=== PATIENT | male | born 1990 | race Caucasian/White ===

== ENCOUNTER 2018-04-03 23:28 | Emergency (ER) | payer SELFPAY ==
[~2018-04-03] VITALS: Ht 190.5 cm; Wt 90.7 kg
[2018-04-03 23:28] VITALS: BP 143/93
[2018-04-04 00:15] LABS: BILIRUBIN,URINE SMALL (NEG); CLARITY,URINE CLEAR; COLOR,URINE AMBER; NITRITE,URINE NEGATIVE (NEG); PH,URINE 5.5; PROTEIN,URINE NEGATIVE (NEG-TRACE)
[2018-04-04] MEDS ORDERED: IV NORMAL SALINE 1000ML BAG 1,000 ML IV ONE (00:15)
[2018-04-04] MEDS ORDERED: LORazepam 1 MG TABLET PO ONE (00:15)
[2018-04-04 00:25] LABS: BARBITURATES NEG (NEG); BENZODIAZEPINES NEG (NEG); CANNABINOIDS POS (NEG); COCAINE NEG (NEG); METHADONE NEG (NEG); OPIATES NEG (NEG); PHENCYCLIDINE NEG (NEG)
[2018-04-04 00:28] LABS: AMPHETAMINE/METHAMPHETAMINE POS (NEG)
[2018-04-04 00:38] LABS: BACTERIA,URINE FEW /HPF (0-FEW); SQUAMOUS EPITHELIAL CELL,UR FEW /LPF
--- NOTE | 2018-04-04 01:45 | PHYS DOC ---
Past Medical History Past Medical History: Schizophrenia Past Surgical History: No Surgical History Alcohol Use: None Drug Use: None Adult General Chief Complaint Chief Complaint: PSYCH EVALUATION HPI HPI Patient is a 28 year old [f__sex] who presents with [] Review of Systems Review of Systems Constitutional: Denies fever or chills [] Eyes: Denies change in visual acuity, redness, or eye pain [] HENT: Denies nasal congestion or sore throat [] Respiratory: Denies cough or shortness of breath [] Cardiovascular: No additional information not addressed in HPI [] GI: Denies abdominal pain, nausea, vomiting, bloody stools or diarrhea [] : Denies dysuria or hematuria [] Musculoskeletal: Denies back pain or joint pain [] Integument: Denies rash or skin lesions [] Neurologic: Denies headache, focal weakness or sensory changes [] Endocrine: Denies polyuria or polydipsia [] All other systems were reviewed and found to be within normal limits, except as documented in this note. Current Medications Current Medications Current Medications Medications (Trade) Dose Ordered Sig/Emerald Start Time Stop Time Status Last Admin Dose Admin Lorazepam (Ativan) 0.5 mg 1X ONCE 04/04/18 00:15 04/04/18 00:16 DC 04/04/18 00:56 0.5 MG Sodium Chloride 1,000 ml @ 1,000 mls/hr 1X ONCE 04/04/18 00:15 04/04/18 01:14 DC Allergies Allergies Allergies Coded Allergies Type Severity Reaction Last Updated Verified No Known Drug Allergies 04/03/18 No Physical Exam Physical Exam Constitutional: Well developed, well nourished, no acute distress, non-toxic appearance. [] HENT: Normocephalic, atraumatic, bilateral external ears normal, oropharynx moist, no oral exudates, nose normal. [] Eyes: PERRLA, EOMI, conjunctiva normal, no discharge. [] Neck: Normal range of motion, no tenderness, supple, no stridor. [] Cardiovascular:Heart rate regular rhythm, no murmur [] Lungs & Thorax: Bilateral breath sounds clear to auscultation [] Abdomen: Bowel sounds normal, soft, no tenderness, no masses, no pulsatile masses. [] Skin: Warm, dry, no erythema, no rash. [] Back: No tenderness, no CVA tenderness. [] Extremities: No tenderness, no cyanosis, no clubbing, ROM intact, no edema. [] Neurologic: Alert and oriented X 3, normal motor function, normal sensory function, no focal deficits noted. [] Psychologic: Affect normal, judgement normal, mood normal. [] Current Patient Data Vital Signs Vital Signs Date Time Temp Pulse Resp B/P (MAP) Pulse Ox O2 Delivery O2 Flow Rate FiO2 04/03/18 23:28 98.9 93 16 143/93 (110) 99 Room Air 98.9 Lab Values Laboratory Tests Test 04/04/18 00:04 Urine Collection Type Unknown Urine Color Estefany Urine Clarity Clear Urine pH 5.5 Urine Specific [place] >=1.030 Urine Protein Negative mg/dL (NEG-TRACE) Urine Glucose (UA) Negative mg/dL (NEG) Urine Ketones (Stick) 15 mg/dL (NEG) Urine Blood Negative (NEG) Urine Nitrite Negative (NEG) Urine Bilirubin Small (NEG) Urine Urobilinogen Dipstick 1.0 mg/dL (0.2 mg/dL) Urine Leukocyte Esterase Negative (NEG) Urine RBC 3-5 /HPF (0-2) Urine WBC 1-4 /HPF (0-4) Urine Squamous Epithelial Cells Few /LPF Urine Bacteria Few /HPF (0-FEW) Urine Mucus Marked /LPF Urine Opiates Screen Neg (NEG) Urine Methadone Screen Neg (NEG) Urine Barbiturates Neg (NEG) Urine Phencyclidine Screen Neg (NEG) Urine Amphetamine/Methamphetamine Pos (NEG) Urine Benzodiazepines Screen Neg (NEG) Urine Cocaine Screen Neg (NEG) Urine Cannabinoids Screen Pos (NEG) Urine Ethyl Alcohol Neg (NEG) EKG EKG [] Radiology/Procedures Radiology/Procedures [] Course & Med Decision Making Course & Med Decision Making Pertinent Labs and Imaging studies reviewed. (See chart for details) [] Dragon Disclaimer Dragon Disclaimer This electronic medical record was generated, in whole or in part, using a voice recognition dictation system. Departure Departure Impression: Primary Impression: Paranoid schizophrenia Additional Impressions: Methamphetamine abuse Marijuana abuse Anxiety Disposition: 01 HOME, SELF-CARE Condition: STABLE Referrals: NO PCP (PCP) Patient Instructions: Anxiety and Panic Attacks, Methamphetamine Abuse, Complications, Schizophrenia Additional Instructions: Stop using methamphetamine and marijuana as they can both increased paranoia. Follow up with the services that you were given by Ct, with the psychiatric assessment team. If worsening return to the emergency department. Problem Qualifiers KITA HODGES APRN Apr 04, 2018 01:45
== END 2018-04-04 01:49 | disposition home or self-care (01) ==
LOC: ER 04-04 00:13
DX: F20.0 Paranoid schizophrenia (principal); F41.9 Anxiety disorder, unspecified; F15.90 Other stimulant use, unspecified, uncomplicated; F12.90 Cannabis use, unspecified, uncomplicated
CPT/HCPCS: 36415; 80307; 81001; 87491; 87591; 99284

== ENCOUNTER 2018-04-08 02:58 | Emergency (ER) | payer SELFPAY ==
[~2018-04-08] VITALS: Ht 195.6 cm; Wt 90.7 kg
[2018-04-08 03:00] VITALS: BP 155/83
--- NOTE | 2018-04-08 03:30 | PHYS DOC ---
Past Medical History Past Medical History: Schizophrenia Past Surgical History: No Surgical History Alcohol Use: None Drug Use: None Adult General Chief Complaint Chief Complaint: PSYCH EVALUATION HPI HPI Patient is a 28 year old male presents with chief complaint of wants an HPV test. This patient has a history of paranoid schizophrenia he says he is not suicidal he says he has a place to go he says his girlfriend told her this and wants to be checked out. Allergies Allergies Allergies Coded Allergies Type Severity Reaction Last Updated Verified No Known Drug Allergies 04/03/18 No Physical Exam Physical Exam Constitutional: Well developed, well nourished, no acute distress, non-toxic appearance. [] HENT: Normocephalic, atraumatic, bilateral external ears normal, oropharynx moist, no oral exudates, nose normal. [] Eyes: PERRLA, EOMI, conjunctiva normal, no discharge. [] Neck: Normal range of motion, no tenderness, supple, no stridor. [] Pulmonary: Normal respiratory effort no increased work of breathing no obvious chest wall trauma Abdomen: Bowel sounds normal, soft, no tenderness, no masses, no pulsatile masses. [] Skin: Warm, dry, no erythema, no rash. [] Back: No tenderness, no CVA tenderness. [] Extremities: No tenderness, no cyanosis, no clubbing, ROM intact, no edema. [] Neurologic: Alert and oriented X 3, normal motor function, normal sensory function, no focal deficits noted. [] Psychologic: odd affect EKG EKG [] Radiology/Procedures Radiology/Procedures [] Course & Med Decision Making Course & Med Decision Making Pertinent Labs and Imaging studies reviewed. (See chart for details) 28 yo m with schizophrenia requesting hpv test advised this is not necessary, should always use protection, reviewed negative chlam/gc noted the other day. pt states not suicidal is trying to stay sober, says he does have a place to go. reassured. Melina Disclaimer Melina Disclaimer This electronic medical record was generated, in whole or in part, using a voice recognition dictation system. Departure Departure Impression: Primary Impression: Schizophrenia Disposition: HOME, SELF-CARE Condition: STABLE Patient Instructions: Schizophrenia MARK KNOWLES MD Apr 08, 2018 03:30
== END 2018-04-08 03:25 | disposition home or self-care (01) ==
LOC: EEVIPCON 02:58 → ER 02:58
DX: F20.0 Paranoid schizophrenia (principal)
CPT/HCPCS: 99281; 99284

== ENCOUNTER 2018-07-03 08:44 | Emergency (ER) | payer SELFPAY ==
[~2018-07-03] VITALS: Ht 193 cm; Wt 95.3 kg
[2018-07-03 09:02] VITALS: BP 161/99
[2018-07-03] MEDS ORDERED: diazePAM 5 MG TABLET PO ONE (09:30)
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
== END 2018-07-03 09:49 | disposition home or self-care (01) ==
LOC: ER 08:44
DX: F41.9 Anxiety disorder, unspecified (principal); F20.9 Schizophrenia, unspecified; F32.9 Major depressive disorder, single episode, unspecified; G89.29 Other chronic pain
CPT/HCPCS: 99284

== ENCOUNTER 2018-07-03 14:15 | Emergency (ER) | payer SELFPAY ==
[~2018-07-03] VITALS: Ht 172.7 cm; Wt 95.3 kg
[2018-07-03 15:08] LABS: BILIRUBIN,URINE SMALL (NEG); CLARITY,URINE CLEAR; COLOR,URINE AMBER; NITRITE,URINE NEGATIVE (NEG); PROTEIN,URINE NEGATIVE (NEG-TRACE)
[2018-07-03 15:14] LABS: BARBITURATES NEG (NEG); BENZODIAZEPINES POS (NEG); CANNABINOIDS NEG (NEG); COCAINE NEG (NEG); METHADONE NEG (NEG); OPIATES NEG (NEG); PHENCYCLIDINE NEG (NEG)
[2018-07-03 15:16] LABS: AMPHETAMINE/METHAMPHETAMINE POS (NEG)
[2018-07-03 15:17] LABS: BACTERIA,URINE 0 /HPF (0-FEW); RBC,URINE 0 /HPF (0-2); WBC,URINE OCC /HPF (0-4)
[2018-07-03 15:18] LABS: SQUAMOUS EPITHELIAL CELL,UR OCC /LPF
[2018-07-03 17:00] VITALS: BP 150/99
--- NOTE | 2018-07-03 17:01 | PHYS DOC ---
Past Medical History Past Medical History: Anxiety, Depression, Schizophrenia Past Surgical History: No Surgical History Alcohol Use: None Drug Use: Marijuana, Methamphetamine Adult General Chief Complaint Chief Complaint: SEXUALLY TRANSMITTED DISEASE [facility] HPI Patient is a 28 year old male with history of schizophrenia, depression, anxiety, who presents to the ED for the second time today to be evaluated. This time patient is requesting HPV and HIV testing. He has a piece of paper stating he would like this test done because he thinks he was exposed. Patient goes into this long stories of maybe he has hep C, he is moving from one idea to the other. Patient was moved to an acute bed, PAT team was consulted. Osmel from the PAT team came and talked to patient, he states patient refused all the help the head lined up for him including going to [employer] or [facility] so that they can get him back on his medicines. Urine noted for methamphetamine use and benzodiazepines, patient was in the ED earlier and received Valium. Patient was discharged, asked him where he was staying, he states he is going home. Inquired where home is. Patient will not state. Offered him a homeless skilled nursing. He refused stating he does not want to go to homeless skilled nursing. He went to the waiting room. He again requested a provided to go back and talk to him. I talked to patient. Addressed his questions which are the same questions regarding his labs which we already had discussed. Reassured him. He stated he is going home. Review of Systems Review of Systems Constitutional: Denies fever or chills [] Eyes: Denies change in visual acuity, redness, or eye pain [] HENT: Denies nasal congestion or sore throat [] Respiratory: Denies cough or shortness of breath [] Cardiovascular: No additional information not addressed in HPI [] GI: Denies abdominal pain, nausea, vomiting, bloody stools or diarrhea [] : Concerns for STDs. Denies dysuria or hematuria [] Musculoskeletal: Denies back pain or joint pain [] Integument: Denies rash or skin lesions [] Neurologic: Denies headache, focal weakness or sensory changes [] Pysch: Psych evaluation All other systems were reviewed and found to be within normal limits, except as documented in this note. Allergies Allergies Allergies Coded Allergies Type Severity Reaction Last Updated Verified No Known Drug Allergies 04/03/18 No Physical Exam Physical Exam Constitutional: Well developed, well nourished, no acute distress, non-toxic appearance. [] HENT: Normocephalic, atraumatic, bilateral external ears normal, oropharynx moist, no oral exudates, nose normal. [] Eyes: PERRLA, EOMI, conjunctiva normal, no discharge. [] Neck: Normal range of motion, no tenderness, supple, no stridor. [] Cardiovascular:Heart rate regular rhythm, no murmur [] Lungs & Thorax: Bilateral breath sounds clear to auscultation [] Abdomen: Bowel sounds normal, soft, no tenderness, no masses, no pulsatile masses. [] Skin: Warm, dry, no erythema, no rash. [] Back: No tenderness, no CVA tenderness. [] Extremities: No tenderness, no cyanosis, no clubbing, ROM intact, no edema. [] Neurologic: Alert and oriented X 3, normal motor function, normal sensory function, no focal deficits noted. [] Psychologic: Flat affect, withdrawn Current Patient Data Vital Signs Vital Signs Date Time Temp Pulse Resp B/P (MAP) Pulse Ox O2 Delivery O2 Flow Rate FiO2 07/03/18 14:30 97.7 86 18 146/93 (110) 97 Room Air 97.7 Lab Values Laboratory Tests Test 07/03/18 14:50 Urine Color Estefany Urine Clarity Clear Urine pH 6.0 Urine Specific [place] >=1.030 Urine Protein Negative mg/dL (NEG-TRACE) Urine Glucose (UA) Negative mg/dL (NEG) Urine Ketones (Stick) Trace mg/dL (NEG) Urine Blood Negative (NEG) Urine Nitrite Negative (NEG) Urine Bilirubin Small (NEG) Urine Urobilinogen Dipstick 1.0 mg/dL (0.2 mg/dL) Urine Leukocyte Esterase Negative (NEG) Urine RBC 0 /HPF (0-2) Urine WBC Occ /HPF (0-4) Urine Squamous Epithelial Cells Occ /LPF Urine Bacteria 0 /HPF (0-FEW) Urine Mucus Slight /LPF Urine Opiates Screen Neg (NEG) Urine Methadone Screen Neg (NEG) Urine Barbiturates Neg (NEG) Urine Phencyclidine Screen Neg (NEG) Urine Amphetamine/Methamphetamine Pos (NEG) Urine Benzodiazepines Screen Pos (NEG) Urine Cocaine Screen Neg (NEG) Urine Cannabinoids Screen Neg (NEG) Urine Ethyl Alcohol Neg (NEG) EKG EKG [] Radiology/Procedures Radiology/Procedures [] Course & Med Decision Making Course & Med Decision Making Pertinent Labs and Imaging studies reviewed. (See chart for details) See history of present illness Dragon Disclaimer Dragon Disclaimer This electronic medical record was generated, in whole or in part, using a voice recognition dictation system. Departure Departure Impression: Primary Impression: Schizophrenia Additional Impressions: Anxiety Encounter for medical screening examination Methamphetamine use Disposition: HOME, SELF-CARE Condition: STABLE Referrals: NO PCP (PCP) Follow-up with [facility] [place] in the course of this week or next week Patient Instructions: Medical Screening Exam Additional Instructions: You were evaluated in the emergency room follow-up with [facility] [place] as well as your psychiatrist in the course of this week or next week. Problem Qualifiers Primary Impression: Schizophrenia Schizophrenia type: unspecified Qualified Codes: F20.9 - Schizophrenia, unspecified HUNG CRABTREE APRN Jul 03, 2018 17:01
== END 2018-07-03 17:05 | disposition home or self-care (01) ==
LOC: ER 14:15
DX: F41.9 Anxiety disorder, unspecified (principal); F20.9 Schizophrenia, unspecified; F15.20 Other stimulant dependence, uncomplicated; F32.9 Major depressive disorder, single episode, unspecified; Z59.0 Homelessness
CPT/HCPCS: 80307; 81001; 87491; 87591; 99284

== ENCOUNTER 2018-07-07 01:02 | Emergency (ER) | payer SELFPAY | END 2018-07-07 01:15 | disposition left against medical advice (07) | LOC: ER 01:02 | DX: F10.239 Alcohol dependence with withdrawal, unspecified (principal); Z53.21 Procedure and treatment not carried out due to patient leaving prior to being seen by health care provider ==

== ENCOUNTER 2019-09-09 00:19 | Emergency (ER) | payer SELFPAY ==
[~2019-09-09] VITALS: Ht 190.5 cm; Wt 110.0 kg
[2019-09-09 00:35] VITALS: BP 179/111
--- NOTE | 2019-09-09 00:53 | PHYS DOC ---
Past Medical History Past Medical History: Anxiety, Depression, Schizophrenia Past Surgical History: No Surgical History Smoking Status: Current Every Day Smoker Alcohol Use: None Drug Use: Marijuana, Methamphetamine General Adult EDM: Chief Complaint: ANXIETY/PANIC ATTACK HPI: HPI: Patient is a 29 year old male who presents with report that he is out of a number of his medications. Patient states that 1 of the medications he is out of his Valium but states that the medication that worked best for his anxiety with Xanax. Patient also indicates that he has a history of schizophrenia and is wanting to see if he can be started on some kind of a new antipsychotic. He denies any suicidal or homicidal ideations. [] Review of Systems: Review of Systems: Constitutional: Denies fever or chills. [] Respiratory: Denies cough or shortness of breath. [] Cardiovascular: Denies chest pain or edema. [] GI: Denies abdominal pain, nausea, vomiting or diarrhea. [] Neurologic: Denies headache, focal weakness or sensory changes. [] Psychiatric: Complains of anxiety. [] Heart Score: Risk Factors: Risk Factors: DM, Current or recent (<one month) smoker, HTN, HLP, family history of CAD, obesity. Risk Scores: Score 0 - 3: 2.5% MACE over next 6 weeks - Discharge Home Score 4 - 6: 20.3% MACE over next 6 weeks - Admit for Clinical Observation Score 7 - 10: 72.7% MACE over next 6 weeks - Early Invasive Strategies Allergies: Allergies: Allergies Coded Allergies Type Severity Reaction Last Updated Verified No Known Drug Allergies 04/03/18 No Physical Exam: PE: Constitutional: Well developed, well nourished, no acute distress, non-toxic appearance. [] HENT: Normocephalic, atraumatic, bilateral external ears normal, oropharynx [address], no oral exudates, nose normal. [] Eyes: PERRLA, EOMI, conjunctiva normal, no discharge. [] Neck: Normal range of motion, no tenderness, supple, no stridor. [] Cardiovascular: Tachycardic rate with regular rhythm [] Lungs & Thorax: Bilateral breath sounds clear to auscultation [] Abdomen: Bowel sounds normal, soft. [] Skin: Warm, dry, no erythema, no rash. [] Neurologic: Alert and oriented X 3, no focal deficits noted. [] EKG: EKG: [] Radiology/Procedures: Radiology/Procedures: [] Course & Med Decision Making: Course & Med Decision Making Pertinent Labs and Imaging studies reviewed. (See chart for details) After evaluation by medical staff, initial plan was to complete blood work and urine studies and have PET team come in for assessment. Prior to medic being able to complete vital signs and draw blood, patient just stated that he would leave AGAINST MEDICAL ADVICE. Patient refused to sign AMA paperwork. Melina Disclaimer: Melina Disclaimer: This electronic medical record was generated, in whole or in part, using a voice recognition dictation system. Departure Departure Impression: Primary Impression: Anxiety Disposition: 07 AGAINST MEDICAL ADVICE Condition: GOOD Referrals: NO PCP (PCP) SHANIKA STACK Jr. DO Sep 09, 2019 00:53
== END 2019-09-09 00:40 | disposition left against medical advice (07) ==
LOC: ER 00:19
DX: F41.9 Anxiety disorder, unspecified (principal); F32.9 Major depressive disorder, single episode, unspecified; F20.9 Schizophrenia, unspecified; F17.200 Nicotine dependence, unspecified, uncomplicated; F12.90 Cannabis use, unspecified, uncomplicated; F19.90 Other psychoactive substance use, unspecified, uncomplicated
CPT/HCPCS: 99281